=== PATIENT | male | born 1950 | race Caucasian/White ===

== ENCOUNTER → 2021-02-19 | Outpatient (CLI) | payer MEDICARE, OTHER ==
--- NOTE | 2021-02-19 13:40 | KCIC ---
EXAM: Bilateral hands, 3 views. HISTORY: Paresthesias. COMPARISON: None. FINDINGS: Left hand: 3 views of the left hand are obtained. There is no fracture, dislocation or subluxation. T here is severe second and third and fifth distal interphalangeal joint space narrowing, subchondral s clerosis, subchondral cyst formation and spurring. There is moderate first interphalangeal joint spur ring and mild first carpometacarpal joint space narrowing and spurring. There are few small soft tiss ue calcifications. Right hand: 3 views of the right hand are obtained. There is severe second and third distal interphal angeal joint and first interphalangeal joint space narrowing, subchondral sclerosis and spurring. The re are subchondral cysts within the right scaphoid. There is moderate right first carpometacarpal denis nt space narrowing, subchondral sclerosis and spurring. IMPRESSION: 1. Severe osteoarthritis involving the left second, third and fifth distal interphalangeal joints, mo derate posterior thoracic involving the left first and pharyngeal joint and mild osteoarthritis invol ving the left first carpal metacarpal joint. 2. Severe osteoarthritis involving the right second and third distal interphalangeal joints and first interphalangeal joint, and moderate osteoarthritis involving the right first carpometacarpal joint. 3. No acute osseous finding. Electronically signed by: Fany Salas MD (02/19/2021 1:38 PM) [id number]
--- NOTE | 2021-02-19 13:55 | KCIC ---
EXAM: Cervical spine, 4 views. HISTORY: Paresthesia. COMPARISON: None. FINDINGS: 4 views of the cervical spine are obtained. There is minimal anterolisthesis of C3 on C3 an d C4 on C5. There is degenerative endplate remodeling and disc space narrowing predominantly at C5-C6 and C6-C7. There is multilevel facet arthropathy. There is no fracture. IMPRESSION: 1. Multilevel degenerative change, primarily at C5-C6 and C6-C7. 2. No acute osseous finding. Electronically signed by: Fany Salas MD (02/19/2021 1:53 PM) [id number]
== END ==
LOC: KCIC 11:16
PROVIDERS: ATTEND Family Medicine
DX: M19.042 Primary osteoarthritis, left hand (principal); M19.041 Primary osteoarthritis, right hand; M47.813 Spondylosis without myelopathy or radiculopathy, cervicothoracic region; R20.2 Paresthesia of skin
CPT/HCPCS: 72040; 73130-50

== ENCOUNTER 2021-06-04 07:26 | Day surgery (SDC) | payer MEDICARE, OTHER ==
[~2021-06-04] VITALS: Ht 180.3 cm; Wt 96.2 kg
[~2021-06-04 07:26] MED LIST: ACET325T9 PO; ASPI-630 PO; ATOR40TA59 PO; BISO1TAB4 PO; DIPH25CA58 PO; FAMO20TA5 PO; HYDROmorphone 2 MG/ML VIAL IVP PRN; IV RINGERS,LACTATED 1000ML 1,000 ML IV SCH; MORPHINE SULFATE 2 MG/ML INJ. IVP PRN; PROCHLORPERAZINE 10 MG/2 ML VIAL. IVP PRN; fentaNYL PF VIAL 100 MCG/2 ML VIAL IVP PRN
[2021-06-04 08:15] VITALS: BP 183/96
--- NOTE | 2021-06-04 08:36 | NUR ---
PT HERE IN OPD FOR LEFT CARPAL TUNNEL RELEASE. PT CONNECTED TO 5 LEAD EKG AND NOTED PT IN ATRIAL FIBRILLATION. PT DENIES HISTORY OF A FIB. DR ETIENNE AND DR CALDERON NOTIFIED OF NEW ONSET A FIB. WILL GIVE PT A RAFI BLOCK FOR HIS CARPAL TUNNEL RELEASE DUE TO THE A FIB. INSTRUCTED PT TO GO TO PRIMARY DOCTOR JAYANT AND BE EXAMINED. PT AND FAMILY VOICED UNDERSTANDING. DR ETIENNE AND DR CALDERON OK TO RESUME WITH SURGERY TODAY
[2021-06-04] MEDS ORDERED: LIDOCAINE 1% PF 30 ML VIAL. ONE (08:40)
[2021-06-04] MEDS ORDERED: BUPIVACAINE MPF 0.25% 30 ML VIAL. ONE (09:27)
[2021-06-04] MEDS ORDERED: HYDR-2761 PO (09:46)
--- NOTE | 2021-06-04 09:49 | DISCH ---
DISCHARGE INSTRUCTIONS Condition on Discharge Condition on Discharge: Stable Activity After Discharge Activity Instructions for Disc: Other, see below (No hard grasping with left hand may do fine motor use such as eating writing and typing) Lifting Instructions after Dis: No heavy lifting Weight Bearing Status after Di: Non weight bearing Diet after Discharge Diet after Discharge: Regular Wound Incision Care Wound/Incision Care: Ice to area for comfort, Keep wound elevated, Do not change dressing (Keep dressing intact unless wet or soiled for protection, may remove and place Band-Aid if wet or soiled) Contacting the after DC Call your doctor for: Concerns you may have Follow-Up Follow up with: Primary care physician as scheduled today for atrial fibri llation Follow Up With: Dr. Real or Rey 10 days BRAIN REAL MD Jun 04, 2021 09:49
[2021-06-04 10:15] VITALS: BP 153/98
--- NOTE | 2021-06-04 10:19 | PDOC4 ---
Operative Note Operative Note Preoperative diagnosis: Left carpal tunnel syndrome Postoperative diagnosis: Same with moderate median nerve compression Operative procedure: Left carpal tunnel release Surgeon: Farhan Television Program Director: Jorge Luis meehan Anesthesia: Amie block Estimated blood loss 1 cc Complications: None Operative indications: Patient is a 70-year-old male with EMG confirmed left carpal tunnel syndrome median sensory and motor changes. I had gone over with him the possibility of continued pain nerve or blood vessel damage incomplete relief sensitivity at the incision medical or other anesthesia complications among others all his questions were answered he wishes to proceed with surgical evaluation and treatment Operative text: Patient was identified procedure verified patient placed in the supine position on the operating table. After adequate amounts of [place] block anesthesia were administered the left upper extremity was prepped and draped in standard sterile fashion and after timeout was performed patient procedure identified and verified, an incision was made just distal to the distal wrist crease dissection carried out down to the transverse carpal ligament which was divided sharply and completely divided proximally and distally with tenotomy scissors under direct vision and complete release verified visually and palpably. Median nerve was noted to have moderate to severe compression and no synovitis or compromise of the flexor tendons was noted. Thorough irrigation carried out normal saline solution and skin closure accomplished with nylon suture in a vertical mattress fashion. Sterile soft dressings were then applied patient was returned to recovery room stable condition having tolerated proced ure well. Jorge Luis meehan was present for the procedure and assisted in patient positioning prepping draping retraction closure and dressings BRAIN CALDERON MD Jun 04, 2021 10:19
== END 2021-06-04 10:45 | disposition home or self-care (01) ==
LOC: SURG 07:26
PROVIDERS: ATTEND Orthopaedic Surgery
DX: G56.02 Carpal tunnel syndrome, left upper limb (principal); I10 Essential (primary) hypertension; E78.00 Pure hypercholesterolemia, unspecified; K21.9 Gastro-esophageal reflux disease without esophagitis; Z79.899 Other long term (current) drug therapy; Z98.890 Other specified postprocedural states; Z79.82 Long term (current) use of aspirin; Z88.8 Allergy status to other drugs, medicaments and biological substances
CPT/HCPCS: 64721; A4930; J0690; J3490; A4657; A6452

== ENCOUNTER → 2021-06-05 | Outpatient (CLI) | payer MEDICARE, OTHER ==
[2021-06-04 10:15] VITALS: BP 153/98
[~2021-06-05] MED LIST changes: +HYDR-2761 PO; -HYDROmorphone 2 MG/ML VIAL IVP PRN; -IV RINGERS,LACTATED 1000ML 1,000 ML IV SCH; -MORPHINE SULFATE 2 MG/ML INJ. IVP PRN; -PROCHLORPERAZINE 10 MG/2 ML VIAL. IVP PRN; -fentaNYL PF VIAL 100 MCG/2 ML VIAL IVP PRN
--- NOTE | 2021-06-05 13:54 | CARD ---
MR#: [id number] Date of Study: 06/05/2021 Ordering Physician: GAUTAM GORDON, Referring Physician: GAUTAM GORDON, Tech: Katie Ugalde [facility] APPROVED REPORT EXAM: Two-dimensional and M-mode echocardiogram with Doppler and color Doppler. Other Information Quality : AverageHR: 60bpm Rhythm : Atrial Fibrillation INDICATION Atrial Fibrillation RISK FACTORS Hypertension 2D DIMENSIONS RVDd3.7 (2.9-3.5cm)Left Atrium(2D)4.8 (1.6-4.0cm) IVSd1.1 (0.7-1.1cm)Aortic Root(2D)4.5 (2.0-3.7cm) LVDd4.6 (3.9-5.9cm)LVOT Diameter2.2 (1.8-2.4cm) PWd1.2 (0.7-1.1cm)LVDs3.6 (2.5-4.0cm) FS (%) 21.0 %SV41.9 ml Aortic Valve AoV Peak Ezequiel.127.1cm/sAoV VTI28.6cm AO Peak GR.6.5mmHgLVOT Peak Ezequiel.97.2cm/s AO Mean GR.3mmHgAVA (VMAX)2.81cm2 Pulmonary Valve PV Peak Dmqygrnh783.6cm/s Tricuspid Valve TR P. Niucquxu650qi/sTR Peak Gr.20mmHg LEFT VENTRICLE The left ventricle is normal size. There is mild concentric left ventricular hypertrophy. The left ve ntricular systolic function is normal and the ejection fraction is within normal range. Estimated ej ection fraction is estimated at 50-55%. There is normal LV segmental wall motion. RIGHT VENTRICLE The right ventricle is normal size. There is normal right ventricular wall thickness. The right ventr icular systolic function is normal. ATRIA The left atrium size is normal. The right atrium size is normal. The interatrial septum is intact wit h no evidence for an atrial septal defect or patent foramen ovale as noted on 2-D or Doppler imaging. AORTIC VALVE The aortic valve is normal in structure and function. Doppler and Color Flow revealed trace aortic re gurgitation. There is no significant aortic valvular stenosis. MITRAL VALVE The mitral valve is normal in structure and function. There is no evidence of mitral valve prolapse. There is no mitral valve stenosis. Doppler and Color-flow revealed mild mitral regurgitation. TRICUSPID VALVE The tricuspid valve is normal in structure and function. Doppler and Color Flow revealed mild tricusp id regurgitation. Estimated PAP 25 mmHg. There is no tricuspid valve stenosis. PULMONIC VALVE The pulmonary valve is normal in structure and function. Doppler and Color Flow revealed mild pulmoni c valvular regurgitation. GREAT VESSELS The aortic root is mildly enlarged. The ascending aorta is mildly dilated. The IVC is normal in size and collapses >50% with inspiration. PERICARDIAL EFFUSION There is no evidence of significant pericardial effusion. Critical Notification Critical Value: No <Conclusion> The left ventricle is normal size. The left ventricular systolic function is normal and the ejection fraction is within normal range. Estimated ejection fraction is estimated at 50-55%. There is mild concentric left ventricular hypertrophy. Doppler and Color Flow revealed trace aortic regurgitation. There is no significant aortic valvular stenosis. Doppler and Color-flow revealed mild mitral regurgitation. Doppler and Color Flow revealed mild tricuspid regurgitation. Estimated PAP 25 mmHg. The aortic root is mildly enlarged. Signed by : Ronal Wilcox MD Electronically Approved : 06/05/2021 13:54:31
== END ==
LOC: ECHO 10:47
PROVIDERS: ATTEND Internal Medicine Cardiovascular Disease
DX: I08.8 Other rheumatic multiple valve diseases (principal); I48.91 Unspecified atrial fibrillation; I10 Essential (primary) hypertension
CPT/HCPCS: 93306

== ENCOUNTER 2021-07-29 06:08 | Day surgery (SDC) | payer MEDICARE, OTHER ==
[~2021-07-29] VITALS: Ht 182.9 cm; Wt 95.7 kg
[~2021-07-29 06:08] MED LIST changes: -BISO1TAB4 PO; +BISO1TAB83 PO; +HYDROmorphone 2 MG/ML VIAL IVP PRN; +IV RINGERS,LACTATED 1000ML 1,000 ML IV SCH; +MORPHINE SULFATE 2 MG/ML INJ. IVP PRN; +PROCHLORPERAZINE 10 MG/2 ML VIAL. IVP PRN; +fentaNYL PF VIAL 100 MCG/2 ML VIAL IVP PRN
[2021-07-29] MEDS ORDERED: CETI10TA74 PO (06:40)
[2021-07-29 06:42] VITALS: BP 177/88
[2021-07-29] MEDS ORDERED: LIDOCAINE 2% PF 5 ML VIAL. ONE (07:04)
[2021-07-29] MEDS ORDERED: PROPOFOL 10 MG/ML (20ML) VIAL. IV ONE (07:04)
[2021-07-29] MEDS ORDERED: 0.9 % SODIUM CHLORIDE 20 ML VIAL. IJ ONE (07:05)
[2021-07-29] MEDS ORDERED: BUPIVACAINE MPF 0.25% 30 ML VIAL. ONE (07:07)
[2021-07-29] MEDS ORDERED: HYDR-2761 PO (07:44)
[2021-07-29] MEDS ORDERED: PROPOFOL 50 ML IV ONE (07:45)
--- NOTE | 2021-07-29 07:47 | DISCH ---
DISCHARGE INSTRUCTIONS Condition on Discharge Condition on Discharge: Stable Activity After Discharge Activity Instructions for Disc: Other, see below (Avoid hard grasp, may do fine motor use such as eating writing and typing in a limited fashion) Lifting Instructions after Dis: No heavy lifting Weight Bearing Status after Di: Non weight bearing Diet after Discharge Diet after Discharge: Regular Wound Incision Care Wound/Incision Care: Ice to area for comfort, Keep wound elevated, Do not change dressing (Keep soft dressing in place for protection unless wet or soiled) Contacting the DRDavid after DC Call your doctor for: Concerns you may have Follow-Up Follow up with: Rey 10 days BRAIN CALDERON MD Jul 29, 2021 07:47
--- NOTE | 2021-07-29 08:19 | PDOC4 ---
Operative Note Operative Note Preoperative diagnosis: Right carpal tunnel syndrome Postoperative diagnosis: Same with severe median nerve compression Operative procedure: Right carpal tunnel release Surgeon: Farhan Crm Technical Lead: Jorge Luis meehan Anesthesia: Amie block Estimated blood loss 1 cc Complications: None Operative indications: Patient is a 70-year-old male with EMG confirmed right carpal tunnel syndrome median sensory and motor changes. I had gone over with him the possibility of continued pain nerve or blood vessel damage incomplete relief sensitivity at the incision medical or other anesthesia complications among others all his questions were answered he wishes to proceed with surgical evaluation and treatment. At his last surgery for the left carpal tunnel release he was found to have atrial fibrillation perioperatively and has since followed up with cardiology who plans an eventual cardioversion procedure and anticoagulation but recommended that we proceed with the carpal tunnel release first. Patient agrees with this treatment plan as well Operative text: Patient was identified procedure verified patient placed in the supine position on the operating table. After adequate amounts of Amie block anesthesia were administered the right upper extremity was prepped and draped in standard sterile fashion and after timeout was performed patient procedure identified and verified, an incision was made just distal to the distal wrist crease dissection carried out down to the transverse carpal ligament which was divided sharply and completely divided proximally and distally with tenotomy scissors under direct vision and complete release verified visually and palpably. Median nerve was noted to have moderate to severe compression and no synovitis or compromise of the flexor tendons was noted. Thorough irrigation carried out normal saline solution and skin closure accomplished with nylon suture in a vertical mattress fashion. Sterile soft dressings were then applied patient was returned to recovery room stable condition having tolerated procedure well. Jorge Luis meehan was present for the procedure and assisted in patient positioning prepping draping retraction closure and dressings BRAIN CALDERON MD Jul 29, 2021 08:19
[2021-07-29 08:50] VITALS: BP 129/81
== END 2021-07-29 09:16 | disposition home or self-care (01) ==
LOC: SURG 06:08
PROVIDERS: ATTEND Orthopaedic Surgery
DX: G56.01 Carpal tunnel syndrome, right upper limb (principal); I48.91 Unspecified atrial fibrillation; I10 Essential (primary) hypertension; E78.00 Pure hypercholesterolemia, unspecified; K21.9 Gastro-esophageal reflux disease without esophagitis; Z79.82 Long term (current) use of aspirin; Z79.899 Other long term (current) drug therapy; Z98.890 Other specified postprocedural states; Z88.8 Allergy status to other drugs, medicaments and biological substances
CPT/HCPCS: 64721; A4930; J0690; J2704; J3490; A4657; A6452

== ENCOUNTER 2021-08-29 10:56 | Day surgery (SDC) | payer MEDICARE, OTHER ==
[~2021-08-29] VITALS: Ht 182.9 cm; Wt 72.4 kg
[~2021-08-29 10:56] MED LIST changes: +APIX5TAB PO; +BENZOCAINE ONE 20% MUCOSAL SPRAY. MM; +CETI10TA74 PO; +LIDOCAINE 2% TOPICAL JELLY 30GM TUBE. TP ONE; +LIDOCAINE 2% VISCOUS 15 ML SOLUTION. SWSW ONE
[2021-08-29 11:17] VITALS: BP 127/80
--- NOTE | 2021-08-29 11:31 | EKG ---
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
[2021-08-29 12:05] LABS: CALCIUM 9.1 mg/dL (8.5-10.1); GFR 73.5; MAGNESIUM 2.1 mg/dL (1.8-2.4); POTASSIUM 3.7 mmol/L (3.5-5.1)
[2021-08-29] MEDS ORDERED: PROPOFOL 10 MG/ML (20ML) VIAL. IV ONE (12:11)
[2021-08-29] MEDS ORDERED: BENZOCAINE ONE 20% MUCOSAL SPRAY. (12:11)
[2021-08-29] MEDS ORDERED: LIDOCAINE 2% VISCOUS 15 ML SOLUTION. ONE (12:11)
[2021-08-29] MEDS ORDERED: LIDOCAINE 2% TOPICAL JELLY 30GM TUBE. TP ONE (12:28)
--- NOTE | 2021-08-29 13:14 | EKG ---
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
[2021-08-29 13:40] VITALS: BP 143/90
--- NOTE | 2021-08-30 12:45 | CARD ---
MR#: [id number] Date of Study: 08/29/2021 Ordering Physician: GAUTAM BURGESS, Referring Physician: GAUTAM BURGESS, Tech: Sofia Laureano, [facility] APPROVED REPORT EXAM: Two-dimensional and M-mode echocardiogram with Doppler and color Doppler. INDICATION Atrial Fibrillation RISK FACTORS Hypertension Hyperlipidemia Reason For Test : Rule out Intracardiac Thrombus. PROCEDURE After obtaining informed consent, patient underwent transesophageal echo in the PACU. Type of Sedation : General Anesthesia Sedation was administered by Enoc Lora. Sedation was achieved with Propofol 260 mg intravenously. Transesophageal probe was inserted and advanced into esophagus by Aashish Burgess MD. The IVORY was performed without complications. Synchronized Cardioversion attempted: Successful Synchronized Cardioversion acheived with 200 Joules after 1 attempt(s). Rhythm following Synchronized Cardioversion: Normal Sinus Rhythm Throughout the procedure, the blood pressure, pulse oximetry, cardiac rhythm, and rate were monitored . The patient tolerated the procedure without adverse effects. Recovery from general anesthesia was une ventful and vital signs were stable. LEFT VENTRICLE The left ventricle is normal size. There is borderline to mild concentric left ventricular hypertroph y. The left ventricular systolic function is normal and the ejection fraction is within normal range. The Ejection Fraction is 50-55%. There is normal LV segmental wall motion. No left ventricle thrombu s noted on this study. RIGHT VENTRICLE The right ventricle is normal size. There is normal right ventricular wall thickness. The right ventr icular systolic function is normal. ATRIA The left atrium is moderately dilated. The right atrium size is normal. The interatrial septum is int act with no evidence for an atrial septal defect or patent foramen ovale as noted on 2-D or Doppler i maging. There is no thrombus noted in the left atrial appendage. AORTIC VALVE The aortic valve is normal in structure and function. Doppler and Color Flow revealed trace aortic re gurgitation. There is no significant aortic valvular stenosis. MITRAL VALVE The mitral valve has mildly restricted posterior leaflet. There is no evidence of mitral valve prolap se. There is no mitral valve stenosis. Doppler and Color-flow revealed trace to mild mitral regurgita tion. TRICUSPID VALVE The tricuspid valve is normal in structure and function. Doppler and Color Flow revealed trace to mil d tricuspid regurgitation. There is no tricuspid valve stenosis. PULMONIC VALVE The pulmonary valve is normal in structure and function. Doppler and Color Flow revealed trace pulmon ic valvular regurgitation. There is no pulmonic valvular stenosis. GREAT VESSELS The aortic root is normal in size. The ascending aorta is normal in size. The IVC is normal in size a nd collapses >50% with inspiration. Critical Notification Critical Value: No <Conclusion> The left ventricular systolic function is normal and the ejection fraction is within normal range. Th e Ejection Fraction is 50-55%. There is normal LV segmental wall motion. There is no thrombus noted in the left atrial appendage. Successful CVN to SR. Signed by : Gautam Burgess, Electronically Approved : 08/30/2021 12:45:03
== END 2021-08-29 14:00 | disposition home or self-care (01) ==
LOC: SURG 10:56
PROVIDERS: ATTEND Internal Medicine Cardiovascular Disease
DX: I48.91 Unspecified atrial fibrillation (principal); I11.9 Hypertensive heart disease without heart failure; E78.00 Pure hypercholesterolemia, unspecified; K21.9 Gastro-esophageal reflux disease without esophagitis; Z79.82 Long term (current) use of aspirin; Z79.899 Other long term (current) drug therapy; Z98.890 Other specified postprocedural states; Z88.8 Allergy status to other drugs, medicaments and biological substances
CPT/HCPCS: 36415; 80048; 83735; 92960; 93005; 93312; 93320; 93325; J2704